=== PATIENT | female | born 1990 | race Hispanic/Latino ===

== ENCOUNTER 2018-09-22 02:33 | Inpatient (IN) | payer OTHER, SELFPAY ==
[2018-09-22] MEDS ORDERED: Lidocaine 1% (PF) 30 ML VIAL SC PRN (03:11)
[2018-09-22] MEDS ORDERED: Ondansetron PF 4 MG/2 ML Vial IVP PRN (03:11)
[2018-09-22] MEDS ORDERED: Ibuprofen 800 MG TAB PO PRN (03:11)
[2018-09-22] MEDS ORDERED: Lactated Ringer's 1,000 ML IV SCH ×2 (03:15)
[2018-09-22 03:17] VITALS: BMI 35.2
[2018-09-22 03:24] LABS: Hemoglobin 11.8 g/dL (12.0-16.0); Mean Corpuscular HGB CONC 34.1 g/dL (32.0-36.0); Mean Corpuscular Hemoglobin 30.8 pg (27.0-31.0); Mean Corpuscular Volume 90.2 fL (78.0-98.0); Mean Platelet Volume 8.9 fL (7.4-10.4); Platelet Count 210 thou/uL (130-400); RBC Distribution Width 13.3 % (11.5-14.5); Red Blood Cell (RBC) Count 3.82 mill/uL (4.20-5.40); White Blood Cell (WBC) Count 8.1 thou/uL (4.8-10.8)
[2018-09-22] MEDS ORDERED: Docusate 100 MG CAP PO PRN (03:26)
[2018-09-22] MEDS ORDERED: Promethazine HCl 25 MG/ML VIAL IM PRN (03:26)
--- NOTE | 2018-09-22 03:28 | PDOC.FPROB ---
FMR OB H&P: HPI - History of Present Illness Chief Complaint: contractions Indentification: History of Present Illness: The patient is a 28YO @ 40.2 weeks by a 9.2 week sono who presented to L &D complaining of contractions that began around 22:30 the day prior to presentation. The patient reports that her contractions started late yesterday and began getting closer to the point that they were about 2 minutes apart which is when she decided to come to L&D. She noted some light vaginal bleeding earlier as well that has since subsided. She endorses regular movement and contractions but denies any vaginal LOF or discharge. She also endorses vaginal pressure. She denies any chest pain, headaches, vision changes or SOB. Primary Care Physician: NIKI Stacy FMR OB H&P: Current - Care : 3 Para: 2001 Gestational age: 40.2 weeks Due date: 09/21/2018 Dating Criteria: 5.5 week sono - OB Labs Blood type: O RH: positive Antibody Screen: negative HIV: negative RPR: negative HepBsAg: negative Rubella: immune Gonorrhea: negative Chlamydia: negative 1 hour gtt: 139 3 hour GTT: fasting 90, 1 hr 160, 2 hr 161, 3 hr 119 A1c: 5.3 GBS: negative - Anatomy Survey Anatomy survey: normal, male fetus FMR OB H&P: History - Past Medical History PMH: none - OB History OB History: term @ 40 weeks x2 h/o/ A1GDM in 2nd & required an episiotomy due to large infant weighing 4kg per father - 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: normal pap in 2017 - Surgical History Sx History: none - Social History Social History: No tobacco, EtOH or drug use - Family History Family History: non-contributory FMR OB H&P: Medications - Current Home Medications: Medication Instructions Recorded Confirmed Type Pnv No.95/Ferrous Fum/Folic AC 1 tab PO Q24HR 09/22/18 09/22/18 History [ Multivitamin Tablet] Allergies/Adverse Reactions: Allergies Allergy/AdvReac Type Severity Reaction Status Date / Time No Known Allergies Allergy Unverified 09/22/18 03:19 FMR OB H&P: ROS - Review of Systems General: denies: fever/chills, weight/appetite/sleep changes Eyes: denies: eye pain, vision changes ENT: denies: nasal congestion, sore throat Cardiovascular: denies: chest pain, edema Respiratory: denies: cough, shortness of breath Gastrointestinal: denies: nausea, vomiting Genitourinary (Female): reports: vaginal bleeding, contractions, vaginal pressure. denies: dysuria, vaginal discharge, vaginal pain Musculoskeletal: denies: pain, swelling Neurologic: denies: loss of counsciousness, headache Integumentary: denies: itching, rash Breast: denies: skin changes, pain/tenderness Endocrine: denies: polydipsia, polyuria Hematologic/Lymphatic: denies: prolonged or excessive bleeding Psychological: denies: depression, anxiety FMR OB H&P: Vital Signs - Maternal Vital signs: Vital Signs - First Documented Temp Pulse Resp BP Pulse Ox 98 F 88 18 139/85 98 09/22/18 03:06 09/22/18 03:06 09/22/18 03:06 09/22/18 03:06 09/22/18 03:06 - Heart Tones Baseline: 140 Variability: moderate Acceleration: absent Deceleration: absent Category: category 1 [place] contractions every: 2 minutes FMR OB H&P: Physical Exam - Physical Exam General: NAD, awake, alert and oriented HEENT: normocephalic and atraumatic, grossly normal vision, grossly normal hearing Neck: supple, FROM Heart: RRR, normal S1/S2, no murmurs/rubs/gallops, pulses present, no edema General: CTAB, no respiratory distress, good air movement, no rales/rhonchi, no wheezing, no retractions Abdomen: gravid, non-tender Musculoskeletal: normal gait and station, pulses present, FROM in all four extremities Neurological: cranial nerves II through XII intact, sensation to pain,touch and proprioception grossly normal, no focal deficit Skin: no rash, good tugor, no jaundice Lymphatic: no unusual bruising or bleeding, no purpura, no petechia Psychiatric: intact recent and remote memory, good judgement and insight, normal mood and affect - Pelvic Exam Vulva: normal hair distribution, appropriate sonia stage, no masses, no lesions , no discharge, no blood SVE: 9/100/-2 @ 0301 Membranes: intact Presentation: vertex FMR OB H&P: Results - Labs Lab results: Laboratory Results - last 24 hr 09/22/18 03:17 WBC 8.1 RBC 3.82 L Hgb 11.8 L Hct 34.5 L MCV 90.2 MCH 30.8 MCHC 34.1 RDW 13.3 Plt Count 210 MPV 8.9 FMR OB H&P: A/P - Problem List (1) Current Visit: Yes Status: Acute (2) Post-dates Current Visit: Yes Status: Acute Code(s): O48.0 - POST-TERM (3) History of gestational diabetes in prior , currently Current Visit: Yes Status: Acute Code(s): O09.299 - SUPRVSN OF PREG W POOR REPRODCTV OR OBSTET HISTORY, UNSP TRI; Z86.32 - PERSONAL HISTORY OF GESTATIONAL DIABETES Disposition: 28YO @ 40.2 weeks by 5.5 week sono presenting in active labor. sIUP @ 40.2 weeks in active labor: - Will admit to L&D and perform an amniotomy to encourage a quicker delivery as patient does not desire anything for pain control. Amniotic sac also easily palpated on cervical check. - Will recheck when patient reports that she feels more pressure. - Will continue to monitor fetus with external monitors. Tracing currently reassuring with baseline in the 140s and moderate variability noted. - GBS negative so no need for intrapartum abx. Discussion: Date/Time: 09/22/18 0328 This H&P was discussed with Dr. Stacy and Dr. Cabrera who agree with the above documentation and plan.
[2018-09-22 03:59] LABS: HBSAg Index 0.31 S/CO (0-0.99); Hep B Surf Ag Non-Reactive S/CO (NonReactive)
[2018-09-22] MEDS: NS / Oxytocin 40 units/1000ml 1,000 ML IV PRN ×2 (04:55→06:13)
--- NOTE | 2018-09-22 05:05 | PDOC.OPDEL ---
OB Operative/Delivery Note Delivery Dr/Surgeon: Jacob/Regis/Rick Pre-Delivery Diagnosis: active labor Procedure/Post Delivery Dx: spontaneous vaginal delivery Weeks gestation: 40 (40.2) Anesthesia: none - Additional Findings/Plan Placenta delivered: spontaneous Repaired Obstetrical Laceration: none Estimated blood loss: 436 mL Compilations/Other Findings: Delivering Physician: Dr. Francy James and Dr. Indy Stacy Attending: Dr. Neal Cabrera Procedure: Spontaneous Vaginal Delivery Anesthesia: none QBL: 435 ml ] Pre-op Diagnosis: 1. post-term intrauterine in active labor 2. Hx of A1GDM in prior Post-op Diagnosis: 1. Post-Term intrauterine , delivered 2. same as above Indications: A 28y/o female presents in active labor. Delivery Note: This is 28yo F @ 40.2 wks who delivered a viable M infant at 0443 on 09/22/18. Following an uneventful antepartum course, a vigorous male was delivered over an intact perineum in the occipitoanterior position. Anterior Shoulder and then remainder of the body delivered. No nuchal cord. The head was held down and mouth and nares were bulb suctioned. Cord clamped after delayed cord clamping and cut and cord blood collected. Placenta delivered intact in the [place] presentation with a 3 vessel cord noted. Fundal massage was performed and the fundus was firm. The cervix and vagina were inspected and found to be free of lacerations. Infant went to nursery in good condition for routine care. Apgars were 8/9 at 1 & 5 minutes, respectively. Patient tolerated delivery well and went to after routine recovery/ care. Post delivery plan: routine recovery Addendum - Attending - Attending Attestation Date/Time: 09/22/18 5539 I personally evaluated the patient and discussed the management with Dr. James I agree with the History, Examination, Assessment and Plan documented above with any addition or exceptions noted below. I was the physician supervising the second and third stages of labor. No complication. Infant delivered to mother's chest. placenta delivered spontaneously. no lacerations
[2018-09-22] MEDS ORDERED: Lanolin Ointment 7 GM TUBE TOP PRN ×2 (05:17→06:14)
[2018-09-22] MEDS ORDERED: Milk Of Magnesia 30 ML UDCUP PO PRN ×2 (05:17→06:14)
[2018-09-22] MEDS ORDERED: Bisacodyl 10 MG SUPP PR PRN ×2 (05:17→06:14)
[2018-09-22 05:52] LABS: Syphilis Antibody Nonreactive (Nonreactive); Syphilis Antibody Index 0.03 S/CO (<1.00 Non-Reactive)
[2018-09-22] MEDS ORDERED: Preparation H Ointment 28 GM TUBE PR PRN (06:14)
[2018-09-22] MEDS ORDERED: Benzocaine-Menthol 82.5 ML CAN TOP PRN (06:14)
[2018-09-22] MEDS: Ibuprofen 800 MG TAB PO SCH ×3 (09:31→21:32)
[2018-09-22] MEDS: Docusate Calcium (SURFAK) 240 MG CAP PO SCH ×4 (09:31→21:32)
[2018-09-22] MEDS: Prenatal Vitamin 1 TAB PO SCH ×2 (09:31)
[2018-09-23] MEDS: Ibuprofen 800 MG TAB PO SCH (06:29)
--- NOTE | 2018-09-23 06:37 | PDOC.PP ---
Post Progress Note Post Day #: 1 Subjective: Feeling well. well and has no concerns. Ready to go home today. PO intake tolerated: yes Flatus: yes Ambulation: yes Vital Signs (12 hours) Temp Pulse Resp BP Pulse Ox 09/23/18 04:15 98.1 F 74 18 107/59 L 09/22/18 23:56 98.5 F 80 18 108/56 L 09/22/18 20:16 97.7 F 73 18 116/69 99 Weight Weight 90.265 kg - Physical Examination General: NAD Cardiovascular: no m/r/g, RRR Respiratory: clear to auscultation bilaterally Abdominal: lochia (scant), no distention, appropriately TTP Fundus firm & at: umbilicus Extremities: negative homans (B) Neurological: no gross focal deficits Psychiatric: A&Ox3, normal affect Result Diagrams: 09/23/18 08:42 Additional Labs: Post Labs Blood Type O POSITIVE 09/22/18 03:57 Hep Bs Antigen Non-Reactive S/CO (NonReactive) 09/22/18 03:16 (1) Post-dates Code(s): O48.0 - POST-TERM Status: Acute - Assessment/Plan 28 yo G3 now P3 PPD #1 from 1. PPD - Routine pp course - Plan for d/c later today - F/u in 2 weeks at [facility] for Nexplanon/IUD referral
[2018-09-23 08:38] VITALS: BP 104/57; TEMP 97.9
[2018-09-23 09:11] LABS: Hemoglobin 9.2 g/dL (12.0-16.0); Platelet Count 191 thou/uL (130-400)
[2018-09-23] MEDS: Docusate Calcium (SURFAK) 240 MG CAP PO SCH ×2 (09:17→09:18)
[2018-09-23] MEDS: Prenatal Vitamin 1 TAB PO SCH ×2 (09:18)
== END 2018-09-23 14:55 | disposition home or self-care (01) | DRG 807 ==
LOC: L&D/OP 02:33 → L&D 03:19 → 3SW 07:54
PROVIDERS: ADMIT Obstetrics & Gynecology; ATTEND Obstetrics & Gynecology
PROC: 10E0XZZ Delivery of Products of Conception, External Approach (ICD-10-PCS; principal; 2018-09-22)
DX: O48.0 Post-term pregnancy (principal); Z37.0 Single live birth; Z3A.40 40 weeks gestation of pregnancy; Z86.32 Personal history of gestational diabetes
CPT/HCPCS: 36415; 85014; 85018; 85027; 85049; 86780; 86850; 86900; 86901; 87340; 99285; J2001

== ENCOUNTER 2020-03-01 12:01 | Emergency (ER) | payer MEDICAID, SELFPAY ==
[2020-03-01 23:04] LABS: SARS-CoV-2 MS2 Positive; SARS-CoV-2 N Gene Negative; SARS-CoV-2 S Gene Negative; SARS-CoV-2 by NAA Not Detected (NotDetected); SARS-CoV-2 orf1ab Negative
== END 2020-03-01 12:56 | disposition home or self-care (01) ==
LOC: ERS 12:01
DX: R51.9 Headache, unspecified (principal); Z20.828 Contact with and (suspected) exposure to other viral communicable diseases
CPT/HCPCS: 87635; 99284; U0003

== ENCOUNTER 2022-03-03 18:33 | Emergency (ER) | payer OTHER, SELFPAY | END 2022-03-03 20:06 | disposition home or self-care (01) | LOC: ERS 18:33 | DX: S16.1XXA Strain of muscle, fascia and tendon at neck level, initial encounter (principal); S20.219A Contusion of unspecified front wall of thorax, initial encounter; V69.59XA Passenger in heavy transport vehicle injured in collision with other motor vehicles in traffic accident, initial encounter | CPT/HCPCS: 71046 ==